=== PATIENT | male | born 1955 | race Caucasian/White ===

== ENCOUNTER → 2017-01-15 | Outpatient (CLI) | payer BC | END | disposition home or self-care (01) | LOC: GMAM 11:06 | PROVIDERS: ATTEND Family Medicine | DX: E29.9 Testicular dysfunction, unspecified (principal); E55.9 Vitamin D deficiency, unspecified ==

== ENCOUNTER → 2017-04-30 | Outpatient (CLI) | payer BC | END | disposition home or self-care (01) | LOC: GMAM 15:27 | PROVIDERS: ATTEND Family Medicine | DX: E29.9 Testicular dysfunction, unspecified (principal) ==

== ENCOUNTER → 2017-08-26 | Outpatient (CLI) | payer BC | END | disposition home or self-care (01) | LOC: GMAM 15:56 | PROVIDERS: ATTEND Family Medicine | DX: Z12.5 Encounter for screening for malignant neoplasm of prostate (principal); E29.9 Testicular dysfunction, unspecified ==

== ENCOUNTER → 2018-02-25 | Outpatient (CLI) | payer BC | LOC: GMAM 14:39 | PROVIDERS: ATTEND Family Medicine | DX: E29.9 Testicular dysfunction, unspecified (principal) ==

== ENCOUNTER → 2018-09-04 | Outpatient (CLI) | payer BC | LOC: GMAM 10:55 | PROVIDERS: ATTEND Family Medicine | DX: E29.9 Testicular dysfunction, unspecified (principal); Z12.5 Encounter for screening for malignant neoplasm of prostate ==

== ENCOUNTER 2018-12-16 14:51 | Emergency (ER) | payer BC ==
[2018-12-16] MEDS ORDERED: KETOROLAC TROMETHAMINE INJ 30 MG/ML VIAL IM ONE (15:16)
[2018-12-16] MEDS ORDERED: HYDROcodone 5MG/APAP 325MG 1 EA TAB PO ONE (15:17)
[2018-12-16] MEDS ORDERED: predniSONE 20 MG TAB PO ONE (15:17)
[2018-12-16] MEDS ORDERED: diazePAM 2 MG TAB PO ONE (15:17)
[2018-12-16 15:19] VITALS: TEMP 98
--- NOTE | 2018-12-16 15:19 | ED.PDOC ---
History of Present Illness - General Chief Complaint: Back Pain or Injury Stated Complaint: RIGHT LOW BACK/HIP PAIN Time Seen by Provider: 12/16/18 15:15 Source: patient Exam Limitations: no limitations - History of Present Illness Initial Comments: the patient is a 63-year-old male presented to emergency room secondary to pain that started in his right knee and has gradually made his way up to his right hip and his low back since this morning. He has been mowing on a lawnmower all day. Exam shows no tenderness to palpation or increased pain with passive range of motion of the knee or the hip. He does however have significant pain with lancinating pain towards the knee with palpation of his lower lumbar spine on the right. There is obvious muscle spasm. No spinous process tenderness to palpation. No gross deformity. He is neurovascularly intact. Timing/Duration: 24 hours Severity: moderate Improving Factors: nothing Worsening Factors: movement Associated Symptoms: denies symptoms Allergies/Adverse Reactions: Allergies NO KNOWN ALLERGY Allergy (Verified 12/16/18 15:14) Home Medications: Ambulatory Orders Cyclobenzaprine HCl [Flexeril] 10 mg PO TID PRN #20 tab 12/16/18 predniSONE [Prednisone] 40 mg PO DAILY #6 tab 12/16/18 Review of Systems - Review of Systems Constitutional: States: no symptoms reported EENTM: States: no symptoms reported Respiratory: States: no symptoms reported Cardiology: States: no symptoms reported Gastrointestinal/Abdominal: States: no symptoms reported Genitourinary: States: no symptoms reported Musculoskeletal: States: back pain Skin: States: no symptoms reported Neurological: States: see HPI Endocrine: States: no symptoms reported All other Systems: No Change from Baseline Past Medical History (General) - Patient Medical History Hx MRSA: Yes - Skin 2011; Finger 2012 MRSA Source:: Wound Physical Exam - Physical Exam General Appearance: Alert, Comfortable, No apparent distress Eye Exam: bilateral normal Ears, Nose, Throat: hearing grossly normal, normal pharynx Neck: full range of motion, supple Respiratory: no respiratory distress, no accessory muscle use Cardiovascular/Chest: normal peripheral pulses, no edema Peripheral Pulses: dorsalis pedis,right: 2+, dorsalis pedis,left: 2+ Gastrointestinal/Abdominal: non tender, soft Rectal Exam: deferred Back Exam: no vertebral tenderness, muscle spasm, other - see history of present illness Extremity: non-tender, normal inspection, no pedal edema, normal capillary refill Neurologic: pearl cutter II-XII nml as tested, alert, normal mood/affect, oriented x 3 Skin Exam: normal color Comments: Vital Signs - 24 hr 12/16/18 12/16/18 15:10 15:19 Temperature 98.0 F Pulse Rate [ 65 left brachial] Respiratory 22 Rate Blood Pressure 132/104 144/88 [left brachial] O2 Sat by Pulse 95 Oximetry Progress - Progress Progress: 12/16/18 15:19 the patient is a 63-year-old male presenting to the emergency room secondary to what appears to be sciatica down the right leg likely originating from the lower lumbar spine with obvious muscle spasm and likely nerve impingement. He needs to try and do stretching exercises for his lower back. Topical heat may also prove beneficial. The use of an inverter to help decompress the spine may also prove beneficial. A chiropractor may also help. He'll be placed on prednisone 40 mg daily for the next 3 days and he'll be written for Flexeril for use as a muscle relaxer as needed. He can additionally take 2 Aleve twice a day with food for the next week. ER warnings were given for any worsening. If symptoms are worsening or not improving over the coming week then I would recommend x-rays at that point. Departure - Departure Clinical Impression: Low back pain with sciatica Qualifiers: Chronicity: acute Back pain laterality: right Sciatica laterality: sciatica of right side Qualified Code(s): M54.41 - Lumbago with sciatica, right side Disposition: Discharge to Home or Self Care Condition: Fair Departure Forms: ED Discharge - Pt. Copy, Patient Portal Self Enrollment Instructions: DI for Back Pain With Sciatica Diet: regular diet Activity: increase activity as tolerated Referrals: Cruz Castellon MD [Primary Care Provider] - 1-2 Weeks Prescriptions: Cyclobenzaprine HCl [Flexeril] 10 mg PO TID PRN #20 tab PRN Reason: Muscle Spasms predniSONE [Prednisone] 40 mg PO DAILY #6 tab Home Medications: Ambulatory Orders Cyclobenzaprine HCl [Flexeril] 10 mg PO TID PRN #20 tab 12/16/18 predniSONE [Prednisone] 40 mg PO DAILY #6 tab 12/16/18 Additional Instructions: the patient is a 63-year-old male presenting to the emergency room secondary to what appears to be sciatica down the right leg likely originating from the lower lumbar spine with obvious muscle spasm and likely nerve impingement. He needs to try and do stretching exercises for his lower back. Topical heat may also prove beneficial. The use of an inverter to help decompress the spine may also prove beneficial. A chiropractor may also help. He'll be placed on prednisone 40 mg daily for the next 3 days and he'll be written for Flexeril for use as a muscle relaxer as needed. He can additionally take 2 Aleve twice a day with food for the next week. ER warnings were given for any worsening. If symptoms are worsening or not improving over the coming week then I would recommend x-rays at that point. as a long-term measure weight loss can help reduce recurrences of low back pain as can exercises that strengthen the muscles in front of the spine such as rowing, swimming or bicycling.
[2018-12-16 16:09] VITALS: BP 146/84; O2SAT 96
== END 2018-12-16 15:50 | disposition home or self-care (01) ==
LOC: ER 14:51
DX: M54.41 Lumbago with sciatica, right side (principal); M25.561 Pain in right knee
CPT/HCPCS: J1885; J7512

== ENCOUNTER → 2018-12-22 | Outpatient (CLI) | payer OTHER ==
--- NOTE | 2018-12-22 10:26 | MRI ---
EXAM DESCRIPTION: Lumbar Spine w/o Contrast : Magnetic Resonance Imaging. CLINICAL HISTORY: RADICULOPATHY COMPARISON: LUMBAR TECHNIQUE: Multiplanar, multiple standard sequences, non contrast MRI, lumbar spine. FINDINGS: L5-S1: Disc desiccation and minimal disc space loss. Posterior midline 4 mm bulge abutting the thecal sac with minimal midline extension below the disc space abutting the thecal sac. AP canal diameter 9 mm. Posterior elements are unremarkable. Moderate left foraminal narrowing and moderate to severe right foraminal narrowing. Bilateral shortened pedicles. L4-L5: Disc desiccation with disc space maintained. Minimal posterior broad-based bulge. Hypertrophy of the flavum ligaments. Bilateral shortened pedicles. AP canal diameter 10 mm. Disc bulge into the left foramen encroaching on the left L4 nerve. Moderate narrowing right foramen with disc bulging. Mild bilateral subarticular recess narrowing. L3-L4: Disc desiccation. Small Schmorl's nodes superior L3 endplate. Minimal anterior bulge and endplate ridging. Posterior broad-based bulge. Bilateral shortened pedicles. Mild hypertrophic facet arthrosis and flavum ligament thickening. AP canal diameter 11 mm. Left foraminal stenosis and moderate to severe right foraminal narrowing. L2-L3: Moderate disc space loss with Schmorl's node inferior L2. Anterior endplate ridging and bulging. Right posterior disc protrusion 6 mm with extrusion 7 mm below the endplate surface effacing the right subarticular recess and displacing the descending right L3 nerve. Left lateral and posterior lateral disc bulge into the foramen with moderate narrowing but no significant encroachment on the left L2 nerve root. Shortened pedicles and thickened flavum ligaments with moderate canal narrowing. L1-L2: Disc desiccation with anterior bulging and endplate ridging. No posterior bulge. Minimal hypertrophy of the flavum ligaments and minimal hypertrophic right facet arthrosis. Canal is patent. Moderate left foraminal narrowing and mild right foraminal narrowing. T12-L1: Normal signal in the disc with disc space preserved. Posterior elements are unremarkable. Canal and foramina are patent. Conus terminates at this level. No scoliosis. Paravertebral soft tissues negative. Normal marrow signal in the remaining vertebral bodies and the posterior elements. Vertebral bodies are not compressed at any level. IMPRESSION: 1. 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 Flavum ligament thickening at some levels. Minimal facet arthrosis. 2. Posterior midline L5-S1 disc bulge with minimal migration below the S1 endplate and mild central canal stenosis. Moderate to severe right foraminal narrowing with possible encroachment on the right L5 nerve root. 3. Borderline mild central canal stenosis at L4-L5. Disc bulge into the left foramen encroaching on the left L4 nerve. Mild bilateral subarticular recess narrowing with posterior broad-based bulge. 4. L3-4 left foraminal stenosis and moderate to severe right foraminal narrowing due to disc bulge, hypertrophic facet arthrosis. 5. Right posterior L2-3 disc protrusion and extrusion below the disc space effacing the right subarticular recess and displacing the right L3 nerve root. Moderate left foraminal narrowing. Electronically signed by: John Chowdhury MD 12/22/2018 10:24 AM CDT
== END ==
LOC: MRI 09:00
PROVIDERS: ATTEND Family Medicine
DX: M51.87 Other intervertebral disc disorders, lumbosacral region (principal); M47.26 Other spondylosis with radiculopathy, lumbar region; M48.062 Spinal stenosis, lumbar region with neurogenic claudication

== ENCOUNTER → 2019-03-23 | Outpatient (CLI) | payer BC | LOC: GMAM 14:11 | PROVIDERS: ATTEND Family Medicine | DX: E29.9 Testicular dysfunction, unspecified (principal); E55.9 Vitamin D deficiency, unspecified; E11.9 Type 2 diabetes mellitus without complications; I10 Essential (primary) hypertension ==

== ENCOUNTER → 2020-06-28 | Outpatient (CLI) | payer MEDICARE, OTHER | LOC: GMAM 11:18 | PROVIDERS: ATTEND Family Medicine | DX: Z12.5 Encounter for screening for malignant neoplasm of prostate (principal); E29.9 Testicular dysfunction, unspecified; E55.9 Vitamin D deficiency, unspecified; E11.9 Type 2 diabetes mellitus without complications | CPT/HCPCS: 82306; 84403; G0103 ==